=== PATIENT | female | born 1950 ===

== ENCOUNTER 2020-04-13 14:47 | Inpatient (IN) | payer MEDICARE, MEDICAID ==
[2020-04-13] VITALS (19 sets, daily range): BP systolic 71–124; BP diastolic 35–70
[~2020-04-13] VITALS: Ht 162.6 cm; Wt 90.5 kg
[2020-04-13 15:01] LABS: ABG BASE EXCESS 2.9 mmol/L (-2.0-2.0); ARTERIAL BLOOD GAS PH 7.224 (7.35-7.45)
[2020-04-13 15:12] LABS: BASO % 0.2 % (0.0-1.0); EOS # 0.2 10*3/uL (0.0-0.4); EOS % 1.8 % (1.0-4.0); HEMATOCRIT 33.8 % (37.0-47.0); LYMPH # 1.5 10*3/uL (1.3-4.4); LYMPH % 11.8 % (27.0-41.0); MEAN CORPUSCULAR HGB 31.9 pg (27.0-31.0); MEAN CORPUSCULAR HGB CONC 29.6 g/dl (33.0-37.0); MEAN PLATELET VOLUME 10.8 fl (9.6-12.3); MONO # 0.9 10*3/uL (0.1-1.0); MONO % 6.9 % (3.0-9.0); NEUT # 9.8 10*3/uL (2.3-7.9); NEUT % 78.7 % (47.0-73.0); PLATELET COUNT AUTOMATED 141 10*3/uL (130-400); RED BLOOD COUNT 3.13 10*6/uL (4.10-5.10); RED CELL DISTRI WIDTH 13.2 % (0-14.5); WHITE BLOOD COUNT 12.5 10*3/uL (4.8-10.8)
[2020-04-13 15:26] LABS: ACT PARTIAL THROMBO TIME 29.3 SECONDS (20.0-32.1)
[2020-04-13 15:28] LABS: ALBUMIN 2.9 gm/dl (3.1-4.5); ALKALINE PHOSPHATASE 94 U/L (45-117); BUN 33 mg/dl (7-24); CHLORIDE 105 mmol/L (98-107); CREATININE 1.56 mg/dL (0.55-1.02); POTASSIUM 4.8 mmol/L (3.5-5.1); SGOT/AST 15 IU/L (3-35); SGPT/ALT 25 U/L (12-78); SODIUM 140 mmol/L (136-145); TOTAL PROTEIN 7.6 gm/dL (6.4-8.2)
[2020-04-13 15:29] LABS: TROPONIN I < 0.015 ng/ml (<0.045)
--- NOTE | 2020-04-13 16:02 | NUR ---
PATIENT BROUGHT INTO ER FOR SHORTNESS OF BREATH AND VOMITING. ABG WAS DRAWN BY RESPIRATORY. IT INDICATED A HIGH CO2, AND THE DOCTOR ELECTED FOR INTUBATION. WITH THE DOCTORS CONSENT RESPIRATORY WAS PUT IN CHARGE OF PLACING THE TUBE. AFTER MEDICATIONS GIVEN ENDOTRACHEAL TUBE WAS PLACED AT 23 AT THE LIP WITH A 7.5 ENDOTRACHEAL TUBE. TUBE PLACEMENT CONFIRMED BY AUSCILTATION AND CAPNOGRAPHY DEVICE. FURTHER CONFIRMATION IN PROGRESS WITH AN CHEST X RAY. DOCTOR AND RN AWARE.
--- NOTE | 2020-04-13 16:12 | NUR ---
PATIENT PLACED ON A/C 18,400,60%,+5 WITH VT AT 405, RR 18, MV=7.4. SPO2:93% HEART RATE:107
--- NOTE | 2020-04-13 17:18 | NUR ---
A 70, admitted to ICCU, under the services of MITZY Dobbins DO with a diagnosis of ACUTE RESPIRATORY DISTESS, INTUBATION. Chief complaint is SHORTNESS OF BREATH, POSSIBLE ASPIRATION. Patient arrived via stretcher from ER. Monitor applied. Initial assessment completed. Vital signs taken and recorded. MITZY DOBBINS DO notified of admission to the unit. Orders received. See assessment for past medical history, medications and allergies. Patient and/or family oriented to unit. [facility] ICCU visitation policy reviewed. Clothing/patient valuable form completed. GERRI MICHAUD
[2020-04-13 17:54] LABS: ABG BASE EXCESS 2.1 mmol/L (-2.0-2.0); ARTERIAL BLOOD GAS PH 7.302 (7.35-7.45)
[2020-04-13 19:02] LABS: BILIRUBIN Negative (Negative); BLOOD Trace-Intact (Negative); CLARITY Cloudy (Clear); COLOR Yellow (Yellow); GLUCOSE Negative (Negative); KETONE Negative (Negative); LEUKO ESTERASE 3+ (Negative); NITRITE Negative (Negative); UROBILINOGEN 0.2 E.U./dl (0.0-1.0)
[2020-04-13] MEDS ORDERED: PEPCID20 MG PO (19:23)
[2020-04-13] MEDS ORDERED: DULCOLAX STOOL100 M1 PO (19:23)
[2020-04-13] MEDS ORDERED: FEROSUL325 MG PO (19:24)
[2020-04-13] MEDS ORDERED: Ipratropium Brom3 ML INH (19:25)
[2020-04-13] MEDS ORDERED: CONSTULOSE10 GM/151 PO (19:26)
[2020-04-13] MEDS ORDERED: KEPPRA250 MG PO (19:27)
[2020-04-13] MEDS ORDERED: SYNTHROID,LEV175 MCG PO (19:27)
[2020-04-13] MEDS ORDERED: TOPROL XL25 MG PO (19:28)
[2020-04-13] MEDS ORDERED: METOCLOPRAMIDE10 MG PO (19:28)
[2020-04-13] MEDS ORDERED: ZOFRAN4 MG PO (19:29)
[2020-04-13] MEDS ORDERED: LASIX40 MG PO ×2 (19:30→19:44)
[2020-04-13] MEDS ORDERED: TYLENOL325 M1 PO (19:31)
[2020-04-13 19:32] LABS: BACTERIA 1+; RBC 16-20 rbc/hpf (0-2); WBC 51-100 wbc/hpf (0-5)
[2020-04-13] MEDS ORDERED: GENTLE LAXATIVE10 MG R (19:33)
[2020-04-13] MEDS ORDERED: ROBITUSSIN DM 101 OZ PO (19:34)
[2020-04-13] MEDS ORDERED: MILK OF MA400 MG/5 M PO (19:36)
[2020-04-13] MEDS ORDERED: MIDODRINE HCL2.5 MG PO (19:36)
[2020-04-13] MEDS ORDERED: PEPTO BISM525 MG/12 PO (19:37)
[2020-04-13] MEDS ORDERED: PULMICORT RES0.25 M1 INH (19:38)
[2020-04-13] MEDS ORDERED: CALTRATE 600+D1 EACH PO (19:40)
[2020-04-13] MEDS ORDERED: MIRALAX17 GM PO (19:41)
[2020-04-13] MEDS ORDERED: KLOR-CON 1010 ME1 PO (19:42)
[2020-04-13] MEDS ORDERED: VELTASSA8.4 GM PO (19:42)
[2020-04-13] MEDS ORDERED: K2 PLUS D3 TAB1 EACH PO (19:43)
[2020-04-13] MEDS ORDERED: VENTOLIN 02.5 MG/3 M INH (19:44)
[2020-04-13 20:14] LABS: ARTERIAL BLOOD GAS PH 7.424 (7.35-7.45)
--- NOTE | 2020-04-13 20:33 | NUR ---
RATE DECREASED TO 16 PER LISANDRO FONTAINE IN THE AM.
[2020-04-14] VITALS (58 sets, daily range): BP systolic 86–129; BP diastolic 40–89
[2020-04-14 06:31] LABS: BASO % 0.2 % (0.0-1.0); EOS # 0.2 10*3/uL (0.0-0.4); EOS % 0.9 % (1.0-4.0); HEMATOCRIT 27.9 % (37.0-47.0); LYMPH # 2.4 10*3/uL (1.3-4.4); LYMPH % 12.2 % (27.0-41.0); MEAN CELL VOLUME 106.5 fl (81.0-99.0); MEAN CORPUSCULAR HGB 32.1 pg (27.0-31.0); MEAN CORPUSCULAR HGB CONC 30.1 g/dl (33.0-37.0); MEAN PLATELET VOLUME 11.5 fl (9.6-12.3); MONO # 1.1 10*3/uL (0.1-1.0); MONO % 5.5 % (3.0-9.0); NEUT # 15.6 10*3/uL (2.3-7.9); NEUT % 80.9 % (47.0-73.0); PLATELET COUNT AUTOMATED 126 10*3/uL (130-400); RED BLOOD COUNT 2.62 10*6/uL (4.10-5.10); RED CELL DISTRI WIDTH 13.2 % (0-14.5); WHITE BLOOD COUNT 19.3 10*3/uL (4.8-10.8)
[2020-04-14 06:43] LABS: ALBUMIN 2.4 gm/dl (3.1-4.5); POTASSIUM 3.9 mmol/L (3.5-5.1)
[2020-04-14 06:51] LABS: CREATININE 1.38 mg/dL (0.55-1.02); FREE T4 1.98 ng/dl (0.76-1.46); THYROID STIM HORMONE (HS) 0.019 uIU/ml (0.358-4.75); TOTAL PROTEIN 6.3 gm/dL (6.4-8.2)
[2020-04-14 07:28] LABS: VITAMIN D, 25-HYDROXY 33.3 ng/mL (30-100)
[2020-04-14 07:51] LABS: ABG BASE EXCESS 6.1 mmol/L (-2.0-2.0); ARTERIAL BLOOD GAS PH 7.434 (7.35-7.45)
--- NOTE | 2020-04-14 08:00 | NUR ---
PT REMAINS INTUBATED WITH A #7.5 ENDOTUBE, 24 CM'S AT HER LIP. PT REMAINS LIGHTLY SEDATED ON A DIPRIVAN GTT. PT AWAKENS EASILY WITH STIMULI. LUNG ESTEVEZ DIM. PT SUCTIONED FOR MODERATE AMOUNT OF BLOOD TINGED,CHUNKY SPUTUM. OGT PLACEMENT VERIFIED WITH AN AIR BOLUS. OGT REMAINS CLAMPED. ABD. SOFTLY OBESE WITH ACTIVE BOWEL SOUNDS. REILLY PATENT FOR CLEAR STRAW COLORED URINE. BILATERAL LOWER LEG EDEMA NOTED. PT TURNED AND REPOSITIONED FOR COMFORT AND PRESSURE ULCER PREVENTION. WILL CONTINUE TO MONITOR PT.
--- NOTE | 2020-04-14 09:23 | NUR ---
DR BERNSTEIN IN TO SEE PT. UPDATED HIM ON PT'S CONDITION. NEW ORDERS RECEIVED.
--- NOTE | 2020-04-14 10:30 | NUR ---
PT'S MLC PULLED OUT WHILE TURNING PT. PRESSURE APPLIED TO SITE. DR CHANCE INFORMED. PT'S LEVOPHED AND DIPRIVAN GTT'S CHANGED TO HER PERIPHERAL LINES. DR CHANCE IS TO PLACE ANOTHER CENTRAL LINE. SPOKE WITH SOPHIA HER YO ABOUT PT'S CONDITION AND CONSENT RECEIVED FOR ARERIAL LINE PLACEMENT ALSO.
--- NOTE | 2020-04-14 12:04 | NUR ---
MEDICATED PT PER PRN ORDER WITH VERSED FOR PT'S INCREASED AGITATION PRIOR TO PLACING DR MERON RITTER.
--- NOTE | 2020-04-14 12:11 | NUR ---
Spoke with Slime at [facility] where pt resides. Slime reports that pt has resided there for approximately 3 years. Pt has a guardian Melody Woodson ([phone]) through [employer]. Prior to pt's admission to [facility], pt was on 1.5 L O2 N/C. She was a one assist to pivot, was able to self-propel in a w/c, and was able to feed herself. Currently, the discharge plan is for pt to return to [facility]. Slime stated that [facility] can provide all care for pt except skilled services. Case Management will continue to follow.
--- NOTE | 2020-04-14 12:26 | NUR ---
PT RESTING BETTER AFTER VERSED.
[2020-04-14 12:28] LABS: ABG BASE EXCESS 2.2 mmol/L (-2.0-2.0); ARTERIAL BLOOD GAS PH 7.357 (7.35-7.45)
--- NOTE | 2020-04-14 13:45 | NUR ---
TITRATED LEVOPHED TO 6 MCG/KG/MIN FOR MAP OF 85. WILL CONTINUE TO MONITOR PT.
--- NOTE | 2020-04-14 14:37 | NUR ---
TITRATED LEVOPHED GTT TO 4 MCG/KG/MIN FOR MAP OF 85. WILL CONTINUE TO MONITOR PT.
--- NOTE | 2020-04-14 15:16 | NUR ---
Patient not appropriate for Occupational Therapy evaluation. She is resting ICCU bed; sedated and intubated. OTR will recheck at a later date. Celine Harrington OTR/sonia
--- NOTE | 2020-04-14 15:43 | NUR ---
PHYSICAL THERAPY Ruddy received chart reviewed attempted to see in the ICCU, however pt is currently sedated and intubated. Will follow as medically appropriate Lawanda Velázquez PT
[2020-04-14 16:43] LABS: ABG BASE EXCESS 2.3 mmol/L (-2.0-2.0); ARTERIAL BLOOD GAS PH 7.424 (7.35-7.45)
--- NOTE | 2020-04-14 18:00 | NUR ---
RIGHT RADIAL ART LINE COMPLETED. PT TOLERATED PROCEDURE WELL.
[2020-04-15] VITALS (62 sets, daily range): BP systolic 91–129; BP diastolic 46–96
[2020-04-15 05:53] LABS: CREATININE 1.49 mg/dL (0.55-1.02); POTASSIUM 3.6 mmol/L (3.5-5.1)
[2020-04-15 06:28] LABS: BASO % 0.1 % (0.0-1.0); LYMPH # 1.2 10*3/uL (1.3-4.4); LYMPH % 7.6 % (27.0-41.0); MEAN CELL VOLUME 106.7 fl (81.0-99.0); MEAN PLATELET VOLUME 11.5 fl (9.6-12.3); MONO # 0.3 10*3/uL (0.1-1.0); MONO % 1.7 % (3.0-9.0); NEUT % 89.6 % (47.0-73.0); NUCLEATED RED BLOOD CELL 0.1 % (0.0-0.0); PLATELET COUNT AUTOMATED 118 10*3/uL (130-400); RED BLOOD COUNT 2.53 10*6/uL (4.10-5.10); RED CELL DISTRI WIDTH 13.3 % (0-14.5); WHITE BLOOD COUNT 15.7 10*3/uL (4.8-10.8)
[2020-04-15 07:30] LABS: ABG BASE EXCESS 3.3 mmol/L (-2.0-2.0); ARTERIAL BLOOD GAS PH 7.4 (7.35-7.45)
--- NOTE | 2020-04-15 07:30 | NUR ---
SEDATION VACATION, PT FULLY AWAKE, NODS HEAD IN RESPONSE TO QUESTIONS, FOLLOWS SIMPLE COMMANDS, SEDATION RESUMED, REMAINS ON VENT. LEVAPHED AT 3MCG, RIJ AND R ART LINE/REILLY/OGT ARE SECURE, REPOSITIONED, ECHO BEING DONE
--- NOTE | 2020-04-15 07:56 | NUR ---
VERSED FOR AGITATION
--- NOTE | 2020-04-15 08:16 | NUR ---
VERSED EFFECTIVE FOR PT CALMNESS DURING ECHO
--- NOTE | 2020-04-15 09:00 | NUR ---
CM in to see patient. She is intubated. She is from [facility] and can return there unless she needs skilled services. brake engineer/social media strategist following. CM will continue to follow for any discharge planning needs.
--- NOTE | 2020-04-15 10:42 | NUR ---
levaphed back to 3mcg, map 62
--- NOTE | 2020-04-15 12:00 | NUR ---
BEDSIDE BRONCH DONE AFTER CONSENT OBTAINED FROM LEGAL GAURDIAN MEDIACTED WITH VERSED JUST PRIOR TO BRONCH
--- NOTE | 2020-04-15 12:09 | NUR ---
LEVAPHED TITRATED ABCK TO 2 MCG-PT DID NOT TOLERATE BEING ON LEFT SIDE
--- NOTE | 2020-04-15 13:05 | NUR ---
LEVAPHED TITRATED TO 1M
--- NOTE | 2020-04-15 13:16 | NUR ---
PT PLACED ON CPAP 03/[address] BERNSTEIN
--- NOTE | 2020-04-15 13:57 | NUR ---
TOLERATING CPAP SMALL AMOUNT OF BLOOD TINGED SPUTUM SINCE BRONCH
--- NOTE | 2020-04-15 14:41 | NUR ---
LEVAPHED TITRATED OFF
--- NOTE | 2020-04-15 15:00 | NUR ---
PT WAS EXTUBATED PLACED ON 3LNC, SPO2 93%, RR 17, HR 113, PT TOLERATING WELL.
[2020-04-15 15:11] LABS: ABG BASE EXCESS 3.9 mmol/L (-2.0-2.0); ARTERIAL BLOOD GAS PH 7.365 (7.35-7.45)
--- NOTE | 2020-04-15 15:31 | NUR ---
EXTUBATED TO NC AT 3L PT NPO
--- NOTE | 2020-04-15 16:17 | NUR ---
WATCHES TV RESTRAINED TO PREVENT PULLING OUT LINES GARBLED SPEECH-UNABLE TO UNDERSTAND
--- NOTE | 2020-04-15 19:23 | NUR ---
CHART CHECK COMPLETE.
--- NOTE | 2020-04-15 19:44 | NUR ---
AWAKE AND ALERT. MAINTAINS EYE CONTACT. ANSWERS WITH ONE WORD. VSS.
[2020-04-16] VITALS: BP 107/92
--- NOTE | 2020-04-16 03:32 | NUR ---
PT CONTINUES TO SLEEP.
[2020-04-16 04:00] VITALS: BP 122/70
--- NOTE | 2020-04-16 04:36 | NUR ---
COMPLETE BATH AND BED LINEN CHANGE DONE. PT TOLERATED WELL AND COOPERATED. SHE SPOKE IN SENTENCES AND MAINTAINED EYE CONTACT.
[2020-04-16 06:26] LABS: BASO % 0.2 % (0.0-1.0); HEMATOCRIT 28.2 % (37.0-47.0); LYMPH # 1.9 10*3/uL (1.3-4.4); LYMPH % 10.2 % (27.0-41.0); MEAN CELL VOLUME 106.4 fl (81.0-99.0); MEAN CORPUSCULAR HGB 31.7 pg (27.0-31.0); MEAN CORPUSCULAR HGB CONC 29.8 g/dl (33.0-37.0); MEAN PLATELET VOLUME 11.2 fl (9.6-12.3); MONO # 0.6 10*3/uL (0.1-1.0); MONO % 3.2 % (3.0-9.0); NEUT # 15.7 10*3/uL (2.3-7.9); NUCLEATED RED BLOOD CELL 0.1 % (0.0-0.0); PLATELET COUNT AUTOMATED 147 10*3/uL (130-400); RED BLOOD COUNT 2.65 10*6/uL (4.10-5.10); RED CELL DISTRI WIDTH 13.1 % (0-14.5); WHITE BLOOD COUNT 18.5 10*3/uL (4.8-10.8)
[2020-04-16 06:54] LABS: ALBUMIN 2.4 gm/dl (3.1-4.5); CREATININE 1.29 mg/dL (0.55-1.02); POTASSIUM 4.1 mmol/L (3.5-5.1)
[2020-04-16 08:00] VITALS: BP 136/59
[2020-04-16 12:00] VITALS: BP 120/56
[2020-04-16 12:10] LABS: ACID FAST SPEC PROCESSING Concentration (.)
--- NOTE | 2020-04-16 14:51 | NUR ---
LUNCH OF MASHED POTATOES, PUDDING, ICE CREAM TAKEN WITHOUT ANY DIFFICULITIES OR COUGHING, SWALLOWS LIQUID EASILY
[2020-04-16 16:00] VITALS: BP 130/71
--- NOTE | 2020-04-16 16:11 | NUR ---
TYLENOL FOR GENERALIZED BODY PAIN PT NOTED TO BE MORE TACHYCARDIC THAN USUAL DR OBRIEN NOTIFIED THAT SEVERAL HOME MEDS INCLUDING TOPROL NEED REORDERED
--- NOTE | 2020-04-16 16:42 | NUR ---
DOCULAX PO FOR LACK OF BM X 3 DAYS
--- NOTE | 2020-04-16 17:00 | NUR ---
TYLENOL APPEARS EFFECTIVE
[2020-04-16 17:32] LABS: ABG BASE EXCESS 4.8 mmol/L (-2.0-2.0); ARTERIAL BLOOD GAS PH 7.399 (7.35-7.45)
--- NOTE | 2020-04-16 17:41 | NUR ---
DOCULAX NOT EFFECTIVE YET
--- NOTE | 2020-04-16 17:41 | NUR ---
LISANDRO CALLED TO DR BERNSTEIN-NO NEW ORDERS
[2020-04-16 20:00] VITALS: BP 131/71
[2020-04-17] VITALS: BP 113/64
[2020-04-17 04:00] VITALS: BP 113/60
[2020-04-17 05:55] LABS: HEMATOCRIT 27.5 % (37.0-47.0); MEAN CELL VOLUME 109.1 fl (81.0-99.0); MEAN CORPUSCULAR HGB 31.7 pg (27.0-31.0); MEAN CORPUSCULAR HGB CONC 29.1 g/dl (33.0-37.0); MEAN PLATELET VOLUME 10.6 fl (9.6-12.3); NUCLEATED RED BLOOD CELL 0.2 % (0.0-0.0); PLATELET COUNT AUTOMATED 146 10*3/uL (130-400); RED BLOOD COUNT 2.52 10*6/uL (4.10-5.10); RED CELL DISTRI WIDTH 13.1 % (0-14.5); WHITE BLOOD COUNT 15.6 10*3/uL (4.8-10.8)
[2020-04-17 05:56] LABS: ALBUMIN 2.5 gm/dl (3.1-4.5); CREATININE 1.28 mg/dL (0.55-1.02); POTASSIUM 3.5 mmol/L (3.5-5.1); TOTAL PROTEIN 6.5 gm/dL (6.4-8.2)
[2020-04-17 06:46] LABS: PLATELET SUFFICIENCY NORMAL (NORMAL); TOTAL CELLS COUNTED 100 #CELLS
--- NOTE | 2020-04-17 07:30 | NUR ---
AWAKE, ALERT, WATCHING TV TALKATIVE, ASKS EVERYONE FOR THEIR NAME SOMEWHAT COOPERATIVE WITH TURNING AND REPOSITIONING RIJ SECURE, REILLY INTACT RESTRAINTS TAKEN OFF DURING THE NIGHT PT REPOSITIONED WITH ASSIST X3
[2020-04-17 08:00] VITALS: BP 118/67
--- NOTE | 2020-04-17 09:26 | NUR ---
ASSISTED CALLED IN PT USES A PUREED DIET WITH NECTAR THICK LIQUIDS DR OBRIEN NOTIFIED, DIET ORDERED
[2020-04-17 12:00] VITALS: BP 122/58
[2020-04-17 16:00] VITALS: BP 136/76
--- NOTE | 2020-04-17 16:05 | NUR ---
REPOSITIONED CHANGED TO MS STATUS GOOD APPETITE
[2020-04-17 20:00] VITALS: BP 111/60
[2020-04-18] VITALS (7 sets, daily range): BP systolic 94–118; BP diastolic 45–70
[2020-04-18 06:11] LABS: ALBUMIN 2.4 gm/dl (3.1-4.5); ALKALINE PHOSPHATASE 70 U/L (45-117); BUN 23 mg/dl (7-24); CHLORIDE 108 mmol/L (98-107); CREATININE 1.06 mg/dL (0.55-1.02); POTASSIUM 3.4 mmol/L (3.5-5.1); SGOT/AST 13 IU/L (3-35); SGPT/ALT 15 U/L (12-78); SODIUM 148 mmol/L (136-145); TOTAL PROTEIN 6.5 gm/dL (6.4-8.2)
[2020-04-18 06:15] LABS: HEMATOCRIT 29.4 % (37.0-47.0); MEAN CELL VOLUME 108.9 fl (81.0-99.0); MEAN CORPUSCULAR HGB 31.5 pg (27.0-31.0); MEAN CORPUSCULAR HGB CONC 28.9 g/dl (33.0-37.0); MEAN PLATELET VOLUME 10.2 fl (9.6-12.3); NUCLEATED RED BLOOD CELL 0.4 % (0.0-0.0); PLATELET COUNT AUTOMATED 154 10*3/uL (130-400); RED CELL DISTRI WIDTH 12.9 % (0-14.5)
[2020-04-18 07:11] LABS: ATYPICAL LYMPHS 2 % (0-0); STOMATOCYTE FEW; TOTAL CELLS COUNTED 100 #CELLS; TOXIC GRANULATION SLIGHT
[2020-04-18 07:12] LABS: PLATELET SUFFICIENCY NORMAL (NORMAL); POLYCHROMASIA SLIGHT
--- NOTE | 2020-04-18 07:29 | NUR ---
24 HR chart check completed.
--- NOTE | 2020-04-18 08:43 | NUR ---
DIVERSIFIED CROPS SUPERVISOR CALLED [facility] TO OBTAIN A FAX NUMBER. DIVERSIFIED CROPS SUPERVISOR SPOKE WITH MATEUSZ LITTLE. SIDNEY ASKED THAT THIS PATIENT RECEIVE AN GI CONSULT BEFORE RETURNING BACK TO THEIR FACILITY. SIDNEY STATED THAT THE PATIENT WILL EAT AND THEN THROW UP HER MEALS AFTER A FEW HOURS. DIVERSIFIED CROPS SUPERVISOR NOTIFIED KARINA QUINTERO OF THE REQUEST VIA [employer] TEXT.
--- NOTE | 2020-04-18 08:45 | NUR ---
ADULT CARE MANAGER FAXED CLINICAL UPDATES TO [facility].
--- NOTE | 2020-04-18 09:00 | NUR ---
PHYSICAL THERAPY Physical Therapy evaluation completed on 5th floor with full evaluation to follow. Recommend physical therapy per plan of care and SNF vs return to [facility] w follow up therapy per staff input on PLOF pending progress upon discharge. Thank you for this referral. Lawanda Velázquez PT
--- NOTE | 2020-04-18 09:01 | NUR ---
SPEECH PATHOLOGY Clinical swallowing evaluation completed as per orders due to aspiration. Medical history includes respiratory failure, COPD, severe sepsis, leukocytosis, CKD, severe intellectual disability, epilepsy, HTN, GERD, CHF, hearing loss, CP, oropharyngeal dysphagia, UTI. Patient was extubated 04/15/20 and is s/p bronchoscopy, Patient is ordered a pureed diet and nectar thick liquids, as per orders from the [facility] from. She was seen this am, alert and pleasant. Patient was not able to follow commands but willingly accepted food and liquid. She was assessed with puree and nectar liquid. She displayed slow oral transit but was able to swallow within a timely manner with no cough or wet vocal quality. She was given thick liquid by cup with no overt s/s aspiration displayed. Recommend patient remain on pureed diet and nectar liquids with use of safe swallow precautions such as upright positioning for meals, small bites and sips, slow feeding to allow her time to swallow and monitoring for s/s aspiration. Short term f/u therapy is recommended to ensure safe tolerance of diet. Results and misty. were shared with patient's nurse who verbalized understanding. Refer to report in [facility] for further information. Thank you for this referral. NÉSTOR FULTON MSCCC-DAIRY PRODUCTS MAKER
--- NOTE | 2020-04-18 09:10 | NUR ---
Occupational Therapy evaluation completed on 5 with full eval to follow. Precautions include fall risk, dependent transfers, dysphagia;nectar liq,pureed diet, dependent all ADLs, high complexity level 91839. Recommend OT per POC and SNF or return to [facility] with OT/PT services. Thank you. Celine Harrington OTR/l
--- NOTE | 2020-04-18 10:50 | NUR ---
BAND SAW MARKER CONTACTED THIS PATIENTS GUARDIAN SELINA. BAND SAW MARKER PROVIDED HER WITH AN UPDATE ON THE PATIENT. BAND SAW MARKER EXPLAINED THE POSSIBLE NEED FOR SNF. SELINA ASKED FOR A LIST OF SNFS. BAND SAW MARKER PROVIDED HER WITH FACILITIES IN [place], [facility], AND [place]. [facility] [place]. BAND SAW MARKER WILL FAX REFERRAL. WILL NEED PT AND COVID RESULTS FOR PLACEMENT.
--- NOTE | 2020-04-18 13:00 | NUR ---
FORGE UTILITY WORKER RECEIVED CALL FROM MATEUSZ LITTLE-RAYRAY LEMA. SHE IS CONCERNED THAT IF THE PATIENT WOULD GO TO SNF SHE WOULD LOSE HER BED. SHE IS ALSO CONCERNED ABOUT THE PATIENT NEEDING A GI WORK UP. LEDA EXPLAINED TO HER THAT THIS FORGE UTILITY WORKER SPOKE WITH KARINA QUINTERO AND IF THE PATIENT DID NOT HAVE SYMPTOMS THER WOULD BE NO NEED. SHE ASKED TO HAVE KARINA QUINTERO CALL HER. FORGE UTILITY WORKER DID NOTIFY KARINA QUINTERO OF THE REQUEST.
--- NOTE | 2020-04-18 13:45 | NUR ---
REILLY CATHETER WAS REMOVED.
--- NOTE | 2020-04-18 14:39 | NUR ---
PURCHASE ORDER CHECKER SPOKE WITH MATEUSZ LEMA. THE PATIENT WILL HAVE [facility] AND WILL ATTEND THERAPY AT [facility]. PURCHASE ORDER CHECKER INFORMED DRYWALLER LEON. PURCHASE ORDER CHECKER ALSO CALLED AND LEFT A MESSAGE FOR GUARDIAN SELINA ASKING FOR A RETURN CALL.
--- NOTE | 2020-04-18 21:12 | NUR ---
24 HR chart check completed.
--- NOTE | 2020-04-18 22:00 | NUR ---
AWAKE, SPEECH DIFFICULT TO UNDERSTAND. PATIENT HOLDING BABY DOLLS. RESPIRATIONS EASY. LUNGS DIMINISHED WITH AUDIBLE WHEEZES. PULSE OX 98% 3L, TITRATED TO 2L. CALL LIGHT WITHIN REACH. BED ALARM MAINTAINED
[2020-04-19] VITALS: BP 124/57
--- NOTE | 2020-04-19 | NUR ---
RESPIRATIONS EASY. VSS. CALL LIGHT WITHIN REACH.
--- NOTE | 2020-04-19 06:00 | NUR ---
SLEPT THROUGHOUT NIGHT WITH NO DISTRESS NOTED. RESPIRATIONS EASY. O2 IN USE. CALL LIGHT WITHIN REACH. BED ALARM MAINTAINED FOR SAFETY
[2020-04-19 08:00] VITALS: BP 128/66
--- NOTE | 2020-04-19 09:38 | NUR ---
NETWORK CONTROL TECHNICIAN RECEIVED CALL FROM PATIENTS GUARDIAN. NETWORK CONTROL TECHNICIAN EXPLAINED POSSIBLE DISCHARGE. NETWORK CONTROL TECHNICIAN ALSO EXPLAINED SPEECH EVAL. PATIENTS GUARDIAN IS OKAY WITH THE PATIENT RETURNING TO [facility].
--- NOTE | 2020-04-19 10:14 | NUR ---
PHYSICAL THERAPY TREATMENT TIME: 10:14 AM - 10:25 AM 10 MINUTES Patient presented to therapy in supine with baby doll in her arms and head of bed elevated and bed alarm on. Patient gives informed consent for treatment. Patient was identified by name and on wristband. Patient has no wt bearign rrestrictions. Patient has Hx epilepsy and Cerebral palsy. Patient very difficult to understand verbally. Patient transferred supine to sitting on EOB with MAX A X 2. Patient sat on EOB with MAX A X 1 to prevent R lateral lean and posterior lean. Patient sitting tolerance for 5 minutes total. PATIENT TRANSFERRED BACK TO SUPINE IN BED WITH MAX A X 2. Patient was left in supine in bed with head of bed elevated, call light within reach and bed alarm on. Patient was 1:1 with this SWINGING CUT OFF SAW OPERATOR for 10 minutes total. JUS MCCAIN SWINGING CUT OFF SAW OPERATOR
--- NOTE | 2020-04-19 10:23 | NUR ---
OT NOTE Pt was seen this A.M. 1:1 for 15 minute OT session. Upon arrival pt was supine in bed. Pt identified by name and on wristband. Pt presented to therapy with continuous 2L-O2 via NC which she remained on throughout the entire session. Pt transferred supine to sit EOB with maxA X 2. While sitting EOB pt presented with P- sitting balance due to requiring maxA X 2 to correct retrograde and R lateral LOB. Pt then transferred sit to supine with maxA X 2. There she was left with call light in hand, tray table in place, and bed alarm activated for safety. Continue with rec D/C plan to SNF or return to [facility]. MEGAN Mills/Jaren
[2020-04-19 12:00] VITALS: BP 146/76
--- NOTE | 2020-04-19 14:11 | NUR ---
SPEECH PATHOLOGY Patient was seen for treatment this pm during lunchtime meal. She was being fed by her PA. Patient was alert and pleasant. She was given a variety of pureed items and nectar thick liquids. Patient was seated upright and fed slowly with small bites. Patient attempted to grab onto the cup of coffee when being fed. Patient tolerated puree with no overt difficulty and good intake. She took some large sips of liquid with coughing post swallow. Patient was encouraged to take small sips for safety and when doing so, no coughing resulted. Recommend patient continue with puree and nectar liquids with safe swallow precautions such as upright seating for meals, small bites/sips, feeding slowly and monitoring for s/s aspiration. Continue therapy plan. NÉSTOR FULTON MSCCC-PRODUCT OWNER
[2020-04-19] MEDS ORDERED: OMNICEF300 MG PO (14:13)
[2020-04-19] MEDS ORDERED: PREDNISONE10 MG PO (14:13)
--- NOTE | 2020-04-19 14:53 | NUR ---
AIR POLLUTION INSPECTOR NOTIFIED OF DISCHARGE. AIR POLLUTION INSPECTOR SPOKE WITH [facility] AND ARRANGED A 3:30PM TRANSPORT. AIR POLLUTION INSPECTOR NOTIFIED MATEUSZ NOGUEIRA OF TIME, [facility], AND PATIENTS GUARDIAN SELINA OF TRANSPORT. AIR POLLUTION INSPECTOR FAXED DEMOGRAPHICS TO [facility] AND DISCHARGE ORDERS TO [facility].
--- NOTE | 2020-04-19 14:54 | NUR ---
RIGHT IJ MULTILUMEN CATH REMOVED. PT TOLERATED WELL AND CATH REMOVED WHOLE WITH TIP INTACT.
--- NOTE | 2020-04-19 15:02 | NUR ---
I GAVE NURSE TO NURSE REPORT TO JESSICA AT [facility].
--- NOTE | 2020-04-19 15:56 | NUR ---
LEFT VIA CART WITH AMBULANCE SERVICE. TOOK ALL BELONGINGS WITH HER.
--- NOTE | 2020-04-20 08:06 | NUR ---
PHYSICAL THERAPY CO-SIGN I approve of the Physical Therapy notes written above. MARY ANNE LOPEZ PT, DPT
--- NOTE | 2020-04-20 17:08 | NUR ---
OCCUPATIONAL THERAPY CO-SIGN I approve of the Occupational Therapy notes written above. TERRELL CARROLL OTR/Jaren
[2020-05-30 12:10] LABS: ACID FAST CULTURE Negative (.)
== END 2020-04-19 15:56 | DRG 871 ==
LOC: ED 14:47 → ICCU 16:01 → EDHOLD 16:01 → ICCU 17:06 → 5E 04-18 06:32
PROVIDERS: Emergency Medicine; Hospitalist; Internal Medicine; Internal Medicine Critical Care Medicine; Student in an Organized Health Care Education/Training Program; ADMIT Family Medicine; ATTEND Family Medicine
PROC: B548ZZA Ultrasonography of Superior Vena Cava, Guidance (ICD-10-PCS; principal; 2020-04-13)
PROC: 02HV33Z Insertion of Infusion Device into Superior Vena Cava, Percutaneous Approach (ICD-10-PCS; principal; 2020-04-13)
PROC: 0BH17EZ Insertion of Endotracheal Airway into Trachea, Via Natural or Artificial Opening (ICD-10-PCS; principal; 2020-04-13)
PROC: 5A1945Z Respiratory Ventilation, 24-96 Consecutive Hours (ICD-10-PCS; principal; 2020-04-13)
PROC: B54MZZA Ultrasonography of Right Upper Extremity Veins, Guidance (ICD-10-PCS; 2020-04-14)
PROC: 02HV33Z Insertion of Infusion Device into Superior Vena Cava, Percutaneous Approach (ICD-10-PCS; 2020-04-14)
PROC: 03HY33Z Insertion of Infusion Device into Upper Artery, Percutaneous Approach (ICD-10-PCS; 2020-04-14)
PROC: B548ZZA Ultrasonography of Superior Vena Cava, Guidance (ICD-10-PCS; 2020-04-14)
PROC: 0B998ZZ Drainage of Lingula Bronchus, Via Natural or Artificial Opening Endoscopic (ICD-10-PCS; 2020-04-16)
PROC: 0B918ZZ Drainage of Trachea, Via Natural or Artificial Opening Endoscopic (ICD-10-PCS; 2020-04-16)
PROC: 0B9B8ZZ Drainage of Left Lower Lobe Bronchus, Via Natural or Artificial Opening Endoscopic (ICD-10-PCS; 2020-04-16)
PROC: 0B938ZZ Drainage of Right Main Bronchus, Via Natural or Artificial Opening Endoscopic (ICD-10-PCS; 2020-04-16)
PROC: 0B948ZZ Drainage of Right Upper Lobe Bronchus, Via Natural or Artificial Opening Endoscopic (ICD-10-PCS; 2020-04-16)
PROC: 0B968ZZ Drainage of Right Lower Lobe Bronchus, Via Natural or Artificial Opening Endoscopic (ICD-10-PCS; 2020-04-16)
PROC: 0B988ZZ Drainage of Left Upper Lobe Bronchus, Via Natural or Artificial Opening Endoscopic (ICD-10-PCS; 2020-04-16)
PROC: 0B958ZZ Drainage of Right Middle Lobe Bronchus, Via Natural or Artificial Opening Endoscopic (ICD-10-PCS; 2020-04-16)
PROC: 0B978ZZ Drainage of Left Main Bronchus, Via Natural or Artificial Opening Endoscopic (ICD-10-PCS; 2020-04-16)
DX: A41.9 Sepsis, unspecified organism (principal); J69.0 Pneumonitis due to inhalation of food and vomit; N17.0 Acute kidney failure with tubular necrosis; E43 Unspecified severe protein-calorie malnutrition; R65.21 Severe sepsis with septic shock; J96.21 Acute and chronic respiratory failure with hypoxia; J96.22 Acute and chronic respiratory failure with hypercapnia; J15.6 Pneumonia due to other Gram-negative bacteria; F72 Severe intellectual disabilities; N30.01 Acute cystitis with hematuria; I13.0 Hypertensive heart and chronic kidney disease with heart failure and stage 1 through stage 4 chronic kidney disease, or unspecified chronic kidney disease; J44.1 Chronic obstructive pulmonary disease with (acute) exacerbation; E87.1 Hypo-osmolality and hyponatremia; J44.0 Chronic obstructive pulmonary disease with (acute) lower respiratory infection; Z20.828 Contact with and (suspected) exposure to other viral communicable diseases; E83.39 Other disorders of phosphorus metabolism; E66.9 Obesity, unspecified; G80.9 Cerebral palsy, unspecified; K59.00 Constipation, unspecified; R13.12 Dysphagia, oropharyngeal phase; J20.9 Acute bronchitis, unspecified; B96.20 Unspecified Escherichia coli [E. coli] as the cause of diseases classified elsewhere; I50.9 Heart failure, unspecified; R73.9 Hyperglycemia, unspecified; K21.9 Gastro-esophageal reflux disease without esophagitis; E78.5 Hyperlipidemia, unspecified; G40.909 Epilepsy, unspecified, not intractable, without status epilepticus; N18.32 Chronic kidney disease, stage 3b; I95.9 Hypotension, unspecified; B96.1 Klebsiella pneumoniae [K. pneumoniae] as the cause of diseases classified elsewhere; Z99.81 Dependence on supplemental oxygen; Z68.34 Body mass index [BMI] 34.0-34.9, adult; Z79.01 Long term (current) use of anticoagulants; Z79.1 Long term (current) use of non-steroidal anti-inflammatories (NSAID); Z79.51 Long term (current) use of inhaled steroids; Z79.899 Other long term (current) drug therapy

== ENCOUNTER 2020-06-19 12:35 | Inpatient (IN) | payer MEDICARE, MEDICAID ==
[2020-06-19] VITALS (22 sets, daily range): BP systolic 58–145; BP diastolic 29–65
[~2020-06-19] VITALS: Ht 154.9 cm; Wt 78.9 kg
[~2020-06-19 12:35] MED LIST: CALTRATE 600+D1 EACH PO; CONSTULOSE10 GM/151 PO; DULCOLAX STOOL100 M1 PO; FEROSUL325 MG PO; GENTLE LAXATIVE10 MG R; Ipratropium Brom3 ML INH; K2 PLUS D3 TAB1 EACH PO; KEPPRA250 MG PO; KLOR-CON 1010 ME1 PO; LASIX40 MG PO; METOCLOPRAMIDE10 MG PO; MIDODRINE HCL2.5 MG PO; MILK OF MA400 MG/5 M PO; MIRALAX17 GM PO; OMNICEF300 MG PO; PEPCID20 MG PO; PEPTO BISM525 MG/12 PO; PREDNISONE10 MG PO; PULMICORT RES0.25 M1 INH; ROBITUSSIN DM 101 OZ PO; SYNTHROID,LEV175 MCG PO; TOPROL XL25 MG PO; TYLENOL325 M1 PO; VELTASSA8.4 GM PO; VENTOLIN 02.5 MG/3 M INH; ZOFRAN4 MG PO
[2020-06-19 13:14] LABS: BASO % 0.3 % (0.0-1.0); EOS # 0.3 10*3/uL (0.0-0.4); EOS % 4.3 % (1.0-4.0); LYMPH # 1.7 10*3/uL (1.3-4.4); LYMPH % 26.5 % (27.0-41.0); MEAN CELL VOLUME 106.5 fl (81.0-99.0); MEAN CORPUSCULAR HGB 30.6 pg (27.0-31.0); MEAN CORPUSCULAR HGB CONC 28.8 g/dl (33.0-37.0); MEAN PLATELET VOLUME 11.2 fl (9.6-12.3); MONO # 0.6 10*3/uL (0.1-1.0); MONO % 9.3 % (3.0-9.0); NEUT # 3.9 10*3/uL (2.3-7.9); NEUT % 59.4 % (47.0-73.0); PLATELET COUNT AUTOMATED 143 10*3/uL (130-400); RED CELL DISTRI WIDTH 13.7 % (0-14.5); WHITE BLOOD COUNT 6.6 10*3/uL (4.8-10.8)
[2020-06-19 13:18] LABS: ABG BASE EXCESS 9.4 mmol/L (-2.0-2.0); ARTERIAL BLOOD GAS PH 7.319 (7.35-7.45)
[2020-06-19 13:27] LABS: ACT PARTIAL THROMBO TIME 28.8 SECONDS (20.0-32.1)
[2020-06-19 13:41] LABS: ALBUMIN 2.8 gm/dl (3.1-4.5); ALKALINE PHOSPHATASE 88 U/L (45-117); BUN 35 mg/dl (7-24); CHLORIDE 106 mmol/L (98-107); CPK 36 U/L (26-192); CREATININE 1.54 mg/dL (0.55-1.02); LDH 115 U/L (84-246); POTASSIUM 4.3 mmol/L (3.5-5.1); SGOT/AST 15 IU/L (3-35); SGPT/ALT 20 U/L (12-78); SODIUM 146 mmol/L (136-145); TOTAL PROTEIN 7.4 gm/dL (6.4-8.2)
[2020-06-19 13:46] LABS: TROPONIN I < 0.015 ng/ml (<0.045)
[2020-06-19 15:21] LABS: ABG BASE EXCESS 8.9 mmol/L (-2.0-2.0); ARTERIAL BLOOD GAS PH 7.299 (7.35-7.45)
[2020-06-19] MEDS ORDERED: QUALITY CHOICE81 M1 PO (18:49)
[2020-06-19] MEDS ORDERED: LIPITOR20 MG PO (18:50)
[2020-06-19] MEDS ORDERED: VITAMIN D325 MC1 PO (19:00)
[2020-06-19 21:18] LABS: BILIRUBIN Negative (Negative); BLOOD Negative (Negative); CLARITY Clear (Clear); COLOR Yellow (Yellow); GLUCOSE Negative (Negative); KETONE Negative (Negative); LEUKO ESTERASE Trace (Negative); NITRITE Negative (Negative); UROBILINOGEN 0.2 E.U./dl (0.0-1.0)
[2020-06-19 21:25] LABS: BACTERIA TRACE
[2020-06-19 21:46] LABS: ABG BASE EXCESS 8.5 mmol/L (-2.0-2.0); ARTERIAL BLOOD GAS PH 7.561 (7.35-7.45)
[2020-06-20] VITALS (37 sets, daily range): BP systolic 89–133; BP diastolic 9–68
[2020-06-20 06:27] LABS: ALBUMIN 2.5 gm/dl (3.1-4.5); BASO % 0.1 % (0.0-1.0); CREATININE 1.46 mg/dL (0.55-1.02); EOS % 0.2 % (1.0-4.0); HEMATOCRIT 30.6 % (37.0-47.0); LYMPH # 3.1 10*3/uL (1.3-4.4); LYMPH % 23.1 % (27.0-41.0); MEAN CELL VOLUME 106.3 fl (81.0-99.0); MEAN CORPUSCULAR HGB 30.9 pg (27.0-31.0); MEAN CORPUSCULAR HGB CONC 29.1 g/dl (33.0-37.0); MEAN PLATELET VOLUME 11.5 fl (9.6-12.3); MONO # 0.8 10*3/uL (0.1-1.0); MONO % 5.8 % (3.0-9.0); NEUT # 9.4 10*3/uL (2.3-7.9); NEUT % 70.5 % (47.0-73.0); PLATELET COUNT AUTOMATED 154 10*3/uL (130-400); POTASSIUM 4.7 mmol/L (3.5-5.1); RED BLOOD COUNT 2.88 10*6/uL (4.10-5.10); RED CELL DISTRI WIDTH 13.7 % (0-14.5); TOTAL PROTEIN 6.5 gm/dL (6.4-8.2); WHITE BLOOD COUNT 13.4 10*3/uL (4.8-10.8)
[2020-06-20 06:28] LABS: ACT PARTIAL THROMBO TIME 27.2 SECONDS (20.0-32.1)
[2020-06-20 08:47] LABS: ABG BASE EXCESS 8.5 mmol/L (-2.0-2.0); ARTERIAL BLOOD GAS PH 7.346 (7.35-7.45)
[2020-06-20 15:11] LABS: ABG BASE EXCESS 10.8 mmol/L (-2.0-2.0); ARTERIAL BLOOD GAS PH 7.411 (7.35-7.45)
[2020-06-21] VITALS (10 sets, daily range): BP systolic 88–116; BP diastolic 42–67
[2020-06-21 06:22] LABS: BASO % 0.2 % (0.0-1.0); EOS # 0.2 10*3/uL (0.0-0.4); EOS % 1.5 % (1.0-4.0); HEMATOCRIT 29.4 % (37.0-47.0); LYMPH # 3.5 10*3/uL (1.3-4.4); LYMPH % 34.2 % (27.0-41.0); MEAN CELL VOLUME 106.1 fl (81.0-99.0); MEAN CORPUSCULAR HGB 31.8 pg (27.0-31.0); MEAN CORPUSCULAR HGB CONC 29.9 g/dl (33.0-37.0); MEAN PLATELET VOLUME 11.6 fl (9.6-12.3); MONO # 0.9 10*3/uL (0.1-1.0); MONO % 8.5 % (3.0-9.0); NEUT # 5.6 10*3/uL (2.3-7.9); NEUT % 55.2 % (47.0-73.0); PLATELET COUNT AUTOMATED 155 10*3/uL (130-400); RED BLOOD COUNT 2.77 10*6/uL (4.10-5.10); WHITE BLOOD COUNT 10.2 10*3/uL (4.8-10.8)
[2020-06-21 06:23] LABS: ALBUMIN 2.8 gm/dl (3.1-4.5); CREATININE 1.34 mg/dL (0.55-1.02); TOTAL PROTEIN 6.6 gm/dL (6.4-8.2)
[2020-06-21 06:45] LABS: POTASSIUM 3.5 mmol/L (3.5-5.1)
[2020-06-21 08:01] LABS: ABG BASE EXCESS 12.2 mmol/L (-2.0-2.0); ARTERIAL BLOOD GAS PH 7.455 (7.35-7.45)
[2020-06-21 16:08] LABS: ABG BASE EXCESS 10.9 mmol/L (-2.0-2.0); ARTERIAL BLOOD GAS PH 7.403 (7.35-7.45)
[2020-06-21 19:33] LABS: ABG BASE EXCESS 9.7 mmol/L (-2.0-2.0); ARTERIAL BLOOD GAS PH 7.419 (7.35-7.45)
[2020-06-22] VITALS: BP 103/69
[2020-06-22 04:00] VITALS: BP 95/54
[2020-06-22 06:04] LABS: HEMATOCRIT 31.9 % (37.0-47.0); MEAN CELL VOLUME 108.1 fl (81.0-99.0); MEAN CORPUSCULAR HGB 30.8 pg (27.0-31.0); MEAN CORPUSCULAR HGB CONC 28.5 g/dl (33.0-37.0); MEAN PLATELET VOLUME 11.4 fl (9.6-12.3); PLATELET COUNT AUTOMATED 168 10*3/uL (130-400); RED BLOOD COUNT 2.95 10*6/uL (4.10-5.10); RED CELL DISTRI WIDTH 14.1 % (0-14.5); WHITE BLOOD COUNT 14.2 10*3/uL (4.8-10.8)
[2020-06-22 06:27] LABS: ALBUMIN 2.9 gm/dl (3.1-4.5); CREATININE 1.46 mg/dL (0.55-1.02); POTASSIUM 3.9 mmol/L (3.5-5.1); TOTAL PROTEIN 6.9 gm/dL (6.4-8.2)
[2020-06-22 07:35] LABS: ABG BASE EXCESS 10.5 mmol/L (-2.0-2.0); ARTERIAL BLOOD GAS PH 7.418 (7.35-7.45)
[2020-06-22 07:36] LABS: PLATELET SUFFICIENCY NORMAL (NORMAL); TOTAL CELLS COUNTED 100 #CELLS
[2020-06-22 08:00] VITALS: BP 100/66
[2020-06-22 09:06] LABS: ACID FAST SPEC PROCESSING Concentration (.)
[2020-06-22 12:00] VITALS: BP 99/55
[2020-06-22 16:00] VITALS: BP 112/62
[2020-06-22 20:00] VITALS: BP 116/65
[2020-06-23 04:00] VITALS: BP 117/45
[2020-06-23 06:09] LABS: BASO % 0.2 % (0.0-1.0); EOS # 0.1 10*3/uL (0.0-0.4); EOS % 0.9 % (1.0-4.0); HEMATOCRIT 32.4 % (37.0-47.0); LYMPH # 3.7 10*3/uL (1.3-4.4); LYMPH % 29.5 % (27.0-41.0); MEAN CELL VOLUME 106.9 fl (81.0-99.0); MEAN CORPUSCULAR HGB 30.4 pg (27.0-31.0); MEAN CORPUSCULAR HGB CONC 28.4 g/dl (33.0-37.0); MEAN PLATELET VOLUME 11.3 fl (9.6-12.3); MONO # 1.3 10*3/uL (0.1-1.0); MONO % 10.3 % (3.0-9.0); NEUT # 7.4 10*3/uL (2.3-7.9); NEUT % 58.5 % (47.0-73.0); PLATELET COUNT AUTOMATED 197 10*3/uL (130-400); RED BLOOD COUNT 3.03 10*6/uL (4.10-5.10); RED CELL DISTRI WIDTH 13.9 % (0-14.5); WHITE BLOOD COUNT 12.6 10*3/uL (4.8-10.8)
[2020-06-23 06:17] LABS: ALBUMIN 2.9 gm/dl (3.1-4.5)
[2020-06-23 06:22] LABS: CREATININE 1.38 mg/dL (0.55-1.02); TOTAL PROTEIN 7.3 gm/dL (6.4-8.2)
[2020-06-23 08:00] VITALS: BP 111/60
[2020-06-23 12:00] VITALS: BP 101/62
[2020-06-23 16:00] VITALS: BP 109/67
[2020-06-23 20:00] VITALS: BP 121/71
[2020-06-24] VITALS: BP 116/72
[2020-06-24 07:11] LABS: HEMATOCRIT 33.4 % (37.0-47.0); MEAN CELL VOLUME 108.1 fl (81.0-99.0); MEAN CORPUSCULAR HGB 31.1 pg (27.0-31.0); MEAN CORPUSCULAR HGB CONC 28.7 g/dl (33.0-37.0); MEAN PLATELET VOLUME 11.2 fl (9.6-12.3); PLATELET COUNT AUTOMATED 200 10*3/uL (130-400); RED BLOOD COUNT 3.09 10*6/uL (4.10-5.10); RED CELL DISTRI WIDTH 13.6 % (0-14.5); WHITE BLOOD COUNT 11.7 10*3/uL (4.8-10.8)
[2020-06-24 07:19] LABS: CREATININE 1.25 mg/dL (0.55-1.02)
[2020-06-24 07:47] LABS: TOTAL CELLS COUNTED 100 #CELLS
[2020-06-24 07:49] LABS: PLATELET SUFFICIENCY NORMAL (NORMAL); POLYCHROMASIA SLIGHT
[2020-06-24 08:00] VITALS: BP 121/58
[2020-06-24 12:00] VITALS: BP 129/90
[2020-06-24 13:30] VITALS: BP 134/76
[2020-06-24 16:00] VITALS: BP 125/86
[2020-06-24 20:00] VITALS: BP 113/53
[2020-06-25] VITALS: BP 98/62
[2020-06-25 06:43] LABS: HEMATOCRIT 34.4 % (37.0-47.0); MEAN CELL VOLUME 109.2 fl (81.0-99.0); MEAN CORPUSCULAR HGB 31.1 pg (27.0-31.0); MEAN CORPUSCULAR HGB CONC 28.5 g/dl (33.0-37.0); MEAN PLATELET VOLUME 11.2 fl (9.6-12.3); PLATELET COUNT AUTOMATED 218 10*3/uL (130-400); RED BLOOD COUNT 3.15 10*6/uL (4.10-5.10); RED CELL DISTRI WIDTH 13.7 % (0-14.5); WHITE BLOOD COUNT 9.2 10*3/uL (4.8-10.8)
[2020-06-25 07:01] LABS: CREATININE 1.11 mg/dL (0.55-1.02); POTASSIUM 4.5 mmol/L (3.5-5.1)
[2020-06-25 07:30] LABS: BASOPHILS 2 % (0-1); PLATELET SUFFICIENCY NORMAL (NORMAL); ROULEAUX SLIGHT; TOTAL CELLS COUNTED 100 #CELLS
[2020-06-25 08:00] VITALS: BP 108/52
[2020-06-25 12:00] VITALS: BP 124/64
[2020-06-25 16:00] VITALS: BP 118/92
[2020-06-25 20:00] VITALS: BP 118/54
[2020-06-26] VITALS: BP 112/58
[2020-06-26 06:25] LABS: BASO % 0.3 % (0.0-1.0); EOS # 0.6 10*3/uL (0.0-0.4); EOS % 8.4 % (1.0-4.0); HEMATOCRIT 31.6 % (37.0-47.0); LYMPH # 3.2 10*3/uL (1.3-4.4); LYMPH % 43.7 % (27.0-41.0); MEAN CELL VOLUME 107.5 fl (81.0-99.0); MEAN CORPUSCULAR HGB 31.3 pg (27.0-31.0); MEAN CORPUSCULAR HGB CONC 29.1 g/dl (33.0-37.0); MEAN PLATELET VOLUME 11.5 fl (9.6-12.3); MONO # 0.6 10*3/uL (0.1-1.0); MONO % 7.5 % (3.0-9.0); NEUT % 39.7 % (47.0-73.0); PLATELET COUNT AUTOMATED 208 10*3/uL (130-400); RED BLOOD COUNT 2.94 10*6/uL (4.10-5.10); RED CELL DISTRI WIDTH 13.5 % (0-14.5); WHITE BLOOD COUNT 7.4 10*3/uL (4.8-10.8)
[2020-06-26 06:53] LABS: ALBUMIN 2.6 gm/dl (3.1-4.5); ALKALINE PHOSPHATASE 69 U/L (45-117); BUN 35 mg/dl (7-24); CHLORIDE 105 mmol/L (98-107); CREATININE 1.01 mg/dL (0.55-1.02); POTASSIUM 4.5 mmol/L (3.5-5.1); SGOT/AST 13 IU/L (3-35); SGPT/ALT 16 U/L (12-78); SODIUM 141 mmol/L (136-145); TOTAL PROTEIN 6.4 gm/dL (6.4-8.2)
[2020-06-26 08:00] VITALS: BP 111/60
[2020-06-26 12:00] VITALS: BP 108/50
[2020-06-26 16:00] VITALS: BP 111/62
[2020-06-26 20:00] VITALS: BP 102/78
[2020-06-27] VITALS: BP 108/57
[2020-06-27 06:29] LABS: BASO % 0.3 % (0.0-1.0); EOS # 0.6 10*3/uL (0.0-0.4); EOS % 7.2 % (1.0-4.0); HEMATOCRIT 31.7 % (37.0-47.0); LYMPH # 3.2 10*3/uL (1.3-4.4); LYMPH % 41.9 % (27.0-41.0); MEAN CELL VOLUME 107.1 fl (81.0-99.0); MEAN CORPUSCULAR HGB 31.4 pg (27.0-31.0); MEAN CORPUSCULAR HGB CONC 29.3 g/dl (33.0-37.0); MEAN PLATELET VOLUME 11.4 fl (9.6-12.3); MONO # 0.6 10*3/uL (0.1-1.0); MONO % 7.6 % (3.0-9.0); NEUT # 3.2 10*3/uL (2.3-7.9); NEUT % 42.6 % (47.0-73.0); PLATELET COUNT AUTOMATED 209 10*3/uL (130-400); RED BLOOD COUNT 2.96 10*6/uL (4.10-5.10); RED CELL DISTRI WIDTH 13.6 % (0-14.5); WHITE BLOOD COUNT 7.6 10*3/uL (4.8-10.8)
[2020-06-27 06:50] LABS: CREATININE 0.98 mg/dL (0.55-1.02)
[2020-06-27 08:00] VITALS: BP 92/65
[2020-06-27 12:00] VITALS: BP 91/57
[2020-06-27 16:00] VITALS: BP 128/84
[2020-06-27 20:00] VITALS: BP 124/78
[2020-06-28] VITALS: BP 110/76
[2020-06-28 12:00] VITALS: BP 112/66
[2020-06-28 16:00] VITALS: BP 116/76
[2020-06-28 20:00] VITALS: BP 130/67
[2020-06-29] VITALS (7 sets, daily range): BP systolic 84–120; BP diastolic 45–90
[2020-06-29 06:32] LABS: MEAN CELL VOLUME 108.6 fl (81.0-99.0); MEAN CORPUSCULAR HGB 31.5 pg (27.0-31.0); MEAN PLATELET VOLUME 11.6 fl (9.6-12.3); PLATELET COUNT AUTOMATED 215 10*3/uL (130-400); RED BLOOD COUNT 2.67 10*6/uL (4.10-5.10); RED CELL DISTRI WIDTH 13.9 % (0-14.5)
[2020-06-29 06:57] LABS: CREATININE 1.11 mg/dL (0.55-1.02); POTASSIUM 4.8 mmol/L (3.5-5.1)
[2020-06-29 08:09] LABS: PLATELET SUFFICIENCY NORMAL (NORMAL); STOMATOCYTE MODERATE; TOTAL CELLS COUNTED 100 #CELLS
[2020-06-30] VITALS: BP 80/52
[2020-06-30 00:20] VITALS: BP 106/52
[2020-06-30 08:00] VITALS: BP 112/90
[2020-06-30 12:00] VITALS: BP 106/60
[2020-06-30 16:00] VITALS: BP 88/50
[2020-08-05 11:07] LABS: ACID FAST CULTURE Negative (.)
== END 2020-06-30 19:25 | DRG 871 ==
LOC: ED 12:35 → EDHOLD 14:08 → ICCU 14:08 → 5E 14:08 → ICCU 17:19 → 5E 06-23 15:28
PROVIDERS: Emergency Medicine; Internal Medicine; Internal Medicine Critical Care Medicine; Social Worker Clinical; Student in an Organized Health Care Education/Training Program; ADMIT Student in an Organized Health Care Education/Training Program; ATTEND Student in an Organized Health Care Education/Training Program
PROC: 5A1945Z Respiratory Ventilation, 24-96 Consecutive Hours (ICD-10-PCS; principal; 2020-06-19)
PROC: 0BH17EZ Insertion of Endotracheal Airway into Trachea, Via Natural or Artificial Opening (ICD-10-PCS; 2020-06-19)
PROC: 0BC98ZZ Extirpation of Matter from Lingula Bronchus, Via Natural or Artificial Opening Endoscopic (ICD-10-PCS; 2020-06-21)
PROC: 0BC48ZZ Extirpation of Matter from Right Upper Lobe Bronchus, Via Natural or Artificial Opening Endoscopic (ICD-10-PCS; 2020-06-21)
PROC: 0BC88ZZ Extirpation of Matter from Left Upper Lobe Bronchus, Via Natural or Artificial Opening Endoscopic (ICD-10-PCS; 2020-06-21)
PROC: 0BC58ZZ Extirpation of Matter from Right Middle Lobe Bronchus, Via Natural or Artificial Opening Endoscopic (ICD-10-PCS; 2020-06-21)
PROC: 0BC38ZZ Extirpation of Matter from Right Main Bronchus, Via Natural or Artificial Opening Endoscopic (ICD-10-PCS; 2020-06-21)
PROC: 0BC78ZZ Extirpation of Matter from Left Main Bronchus, Via Natural or Artificial Opening Endoscopic (ICD-10-PCS; 2020-06-21)
PROC: 0BC68ZZ Extirpation of Matter from Right Lower Lobe Bronchus, Via Natural or Artificial Opening Endoscopic (ICD-10-PCS; 2020-06-21)
PROC: 0BCB8ZZ Extirpation of Matter from Left Lower Lobe Bronchus, Via Natural or Artificial Opening Endoscopic (ICD-10-PCS; 2020-06-21)
PROC: 0BC18ZZ Extirpation of Matter from Trachea, Via Natural or Artificial Opening Endoscopic (ICD-10-PCS; 2020-06-21)
PROC: 5A09357 Assistance with Respiratory Ventilation, Less than 24 Consecutive Hours, Continuous Positive Airway Pressure (ICD-10-PCS; 2020-06-22)
PROC: 5A09357 Assistance with Respiratory Ventilation, Less than 24 Consecutive Hours, Continuous Positive Airway Pressure (ICD-10-PCS; 2020-06-24)
PROC: 5A09357 Assistance with Respiratory Ventilation, Less than 24 Consecutive Hours, Continuous Positive Airway Pressure (ICD-10-PCS; 2020-06-25)
PROC: 5A09357 Assistance with Respiratory Ventilation, Less than 24 Consecutive Hours, Continuous Positive Airway Pressure (ICD-10-PCS; 2020-06-26)
PROC: 5A09357 Assistance with Respiratory Ventilation, Less than 24 Consecutive Hours, Continuous Positive Airway Pressure (ICD-10-PCS; 2020-06-27)
PROC: 5A09357 Assistance with Respiratory Ventilation, Less than 24 Consecutive Hours, Continuous Positive Airway Pressure (ICD-10-PCS; 2020-06-28)
PROC: 5A09357 Assistance with Respiratory Ventilation, Less than 24 Consecutive Hours, Continuous Positive Airway Pressure (ICD-10-PCS; 2020-06-29)
PROC: BD1BYZZ Fluoroscopy of Mouth/Oropharynx using Other Contrast (ICD-10-PCS; 2020-06-29)
PROC: 5A09357 Assistance with Respiratory Ventilation, Less than 24 Consecutive Hours, Continuous Positive Airway Pressure (ICD-10-PCS; 2020-06-30)
DX: A41.9 Sepsis, unspecified organism (principal); J69.0 Pneumonitis due to inhalation of food and vomit; J96.21 Acute and chronic respiratory failure with hypoxia; J96.22 Acute and chronic respiratory failure with hypercapnia; J15.212 Pneumonia due to Methicillin resistant Staphylococcus aureus; E44.0 Moderate protein-calorie malnutrition; F72 Severe intellectual disabilities; E87.0 Hyperosmolality and hypernatremia; I13.0 Hypertensive heart and chronic kidney disease with heart failure and stage 1 through stage 4 chronic kidney disease, or unspecified chronic kidney disease; D68.69 Other thrombophilia; I50.32 Chronic diastolic (congestive) heart failure; E87.3 Alkalosis; N18.32 Chronic kidney disease, stage 3b; M85.80 Other specified disorders of bone density and structure, unspecified site; K21.9 Gastro-esophageal reflux disease without esophagitis; J44.9 Chronic obstructive pulmonary disease, unspecified; G80.9 Cerebral palsy, unspecified; Z20.822 Contact with and (suspected) exposure to COVID-19; D53.9 Nutritional anemia, unspecified; R73.9 Hyperglycemia, unspecified; G40.909 Epilepsy, unspecified, not intractable, without status epilepticus; E78.5 Hyperlipidemia, unspecified; H91.90 Unspecified hearing loss, unspecified ear; R13.12 Dysphagia, oropharyngeal phase; D69.6 Thrombocytopenia, unspecified; E87.8 Other disorders of electrolyte and fluid balance, not elsewhere classified; D72.829 Elevated white blood cell count, unspecified; E66.9 Obesity, unspecified; Y95 Nosocomial condition; E83.39 Other disorders of phosphorus metabolism; J20.9 Acute bronchitis, unspecified; Z68.27 Body mass index [BMI] 27.0-27.9, adult; Z79.01 Long term (current) use of anticoagulants